=== PATIENT | female | born 1980 | race Caucasian/White ===

== ENCOUNTER 2017-05-18 15:28 | Emergency (ER) | payer OTHER ==
[~2017-05-18] VITALS: Ht 162.5 cm; Wt 83.9 kg
[~2017-05-18 15:28] MED LIST: 'PARAFON FORTE500 M1 PO; AUGMENTIN 875875 MG PO; BUPROPION HCL150 M1 PO; LOVASTATIN10 MG PO; NAPROSYN500 MG PO; PREDNISONE10 MG PO; SIMVASTATIN5 MG PO
[2017-05-18 15:33] VITALS: BP 148/88
[2017-05-18] MEDS ORDERED: MOBIC7.5 MG PO (15:34)
[2017-05-18] MEDS ORDERED: 'PARAFON FORTE500 M1 PO (15:46)
== END 2017-05-18 15:51 | disposition home or self-care (01) ==
LOC: ED 15:28
DX: M54.42 Lumbago with sciatica, left side (principal); M54.41 Lumbago with sciatica, right side; R03.0 Elevated blood-pressure reading, without diagnosis of hypertension; F17.200 Nicotine dependence, unspecified, uncomplicated

== ENCOUNTER 2018-02-17 08:39 | Emergency (ER) | payer OTHER ==
[~2018-02-17] VITALS: Ht 162.5 cm; Wt 79.4 kg
[~2018-02-17 08:39] MED LIST changes: +MOBIC7.5 MG PO
[2018-02-17 10:47] VITALS: BP 125/80
[2018-02-17] MEDS ORDERED: CLARITIN10 MG PO (10:55)
[2018-02-17] MEDS ORDERED: PREDNISONE10 MG PO (10:55)
[2018-02-17] MEDS ORDERED: FLONASE ALLERG9.9 ML NAS (10:55)
== END 2018-02-17 11:01 | disposition home or self-care (01) ==
LOC: ED 08:39
DX: R51 Headache (principal); R03.0 Elevated blood-pressure reading, without diagnosis of hypertension; F17.200 Nicotine dependence, unspecified, uncomplicated; Z98.890 Other specified postprocedural states; Z79.899 Other long term (current) drug therapy

== ENCOUNTER 2018-04-08 20:33 | Emergency (ER) | payer OTHER ==
[~2018-04-08] VITALS: Ht 160 cm; Wt 81.2 kg
[~2018-04-08 20:33] MED LIST changes: +CLARITIN10 MG PO; +FLONASE ALLERG9.9 ML NAS
[2018-04-08 20:36] VITALS: BP 121/75
[2018-04-08] MEDS ORDERED: Motrin,Rufen800 MG PO (20:45)
== END 2018-04-08 21:00 | disposition home or self-care (01) ==
LOC: ED 20:33
DX: G56.01 Carpal tunnel syndrome, right upper limb (principal); M77.8 Other enthesopathies, not elsewhere classified; F17.200 Nicotine dependence, unspecified, uncomplicated; Z79.899 Other long term (current) drug therapy

== ENCOUNTER 2018-05-16 02:50 | Emergency (ER) | payer OTHER ==
[~2018-05-16] VITALS: Ht 162.5 cm; Wt 81.6 kg
--- NOTE | ~2018-05-16 | EKG ---
[place], [place] ELECTROCARDIOGRAM REPORT NAME: KINJAL TOVAR UNIT #: [id number] ROOM: DOCTOR: EPIPHANY DRAFT REPORT BIRTHDATE: [birth year] [facility] Test Date: 2018-05-16 Test Time: 03:13:29 Pat Name: KINJAL TOVAR Department: ER Room: 13 Gender: F [employer]: : 1980 Requested By: ZONIA KONG Order Number: [id number] Reading MD: Sylvia Casarez MD Measurements Intervals [place] Rate: 87 P: 56 CT: 151 QRS: 35 QRSD: 83 T: 34 QT: 364 QTc: 438 Interpretive Statements Sinus rhythm Nonspecific T abnormalities, anterior leads Abnormal EKG. Electronically Signed On 05-16-2018 12:04:00 PDT by Sylvia Casarez MD CM:EKGRPT:ELECTROCARDIOGRAM REPORT [id number] ZONIA KONG MD EPIPHANY DRAFT REPORT ZONIA KONG MD
--- NOTE | ~2018-05-16 | EKG ---
[place], [place] ELECTROCARDIOGRAM REPORT NAME: KINJAL TOVAR UNIT #: [id number] ROOM: DOCTOR: EPIPHANY DRAFT REPORT BIRTHDATE: [birth year] [facility] Test Date: 2018-05-16 Test Time: 05:10:40 Pat Name: KINJAL TOVAR Department: ER Room: 13 Gender: F Medical Device: ZACHERY : 1980 Requested By: ZONIA KONG Order Number: [id number] Reading MD: Sylvia Casarez MD Measurements Intervals [place] Rate: 78 P: 62 [place]: 147 QRS: 46 QRSD: 81 T: 52 QT: 388 QTc: 442 Interpretive Statements Sinus rhythm Borderline T abnormalities, anterior leads Abnormal EKG. No significant change compared to prior EKG. Electronically Signed On 05-16-2018 12:04:39 PDT by Sylvia Casarez MD CM:EKGRPT:ELECTROCARDIOGRAM REPORT 0510 1204 ZONIA LIZARRAGA DRAFT REPORT ZONIA KONG MD
[~2018-05-16 02:50] MED LIST changes: +Motrin,Rufen800 MG PO
[2018-05-16] MEDS ORDERED: LIPITOR20 MG PO (02:54)
[2018-05-16] MEDS ORDERED: HYDROCHLOROTH12.5 M3 PO (02:55)
[2018-05-16] MEDS ORDERED: CELEXA20 MG PO (02:55)
[2018-05-16 03:15] LABS: BASO % 0.4 % (0.0-1.0); EOS # 0.2 10*3/uL (0.0-0.4); EOS % 2.1 % (1.0-4.0); HEMATOCRIT 44.2 % (37.0-47.0); HEMOGLOBIN 14.5 g/dl (12.0-16.0); LYMPH # 3.8 10*3/uL (1.3-4.4); LYMPH % 41.9 % (27.0-41.0); MEAN CELL VOLUME 95.3 fl (81.0-99.0); MEAN CORPUSCULAR HGB 31.3 pg (27.0-31.0); MEAN CORPUSCULAR HGB CONC 32.8 g/dl (33.0-37.0); MEAN PLATELET VOLUME 10.5 fl (9.6-12.3); MONO # 0.4 10*3/uL (0.1-1.0); NEUT # 4.6 10*3/uL (2.3-7.9); NEUT % 51.3 % (47.0-73.0); PLATELET COUNT AUTOMATED 277 10*3/uL (130-400); RED BLOOD COUNT 4.64 10*6/uL (4.10-5.10); RED CELL DISTRI WIDTH 13.2 % (0-14.5); WHITE BLOOD COUNT 9.1 10*3/uL (4.8-10.8)
[2018-05-16 03:26] LABS: ACT PARTIAL THROMBO TIME 26.3 SECONDS (20.8-31.5); INTERNATIONAL NORM RATIO 0.9 (2.0-3.5)
[2018-05-16 03:33] LABS: ALBUMIN 3.5 gm/dl (3.1-4.5); ALKALINE PHOSPHATASE 141 U/L (45-117); BUN 12 mg/dl (7-24); CHLORIDE 104 mmol/L (98-107); CREATININE 1.12 mg/dL (0.55-1.02); SGOT/AST 14 IU/L (3-35); SGPT/ALT 26 U/L (12-78); SODIUM 139 mmol/L (136-145); TOTAL PROTEIN 7.2 gm/dL (6.4-8.2)
[2018-05-16 03:34] LABS: TROPONIN I < 0.015 ng/ml (<0.045)
[2018-05-16 05:32] VITALS: BP 113/70
[2018-06-09] MEDS ORDERED: OMEPRAZOLE20 M3 PO (10:15)
[2018-06-09] MEDS ORDERED: DICLOFENAC SOD50 MG PO (10:16)
[2018-06-09] MEDS ORDERED: LOPID600 M1 PO (10:16)
== END 2018-05-16 05:48 | disposition home or self-care (01) ==
LOC: ED 02:50
PROVIDERS: Emergency Medicine Emergency Medical Services
DX: R07.89 Other chest pain (principal); R73.9 Hyperglycemia, unspecified; I10 Essential (primary) hypertension; E78.5 Hyperlipidemia, unspecified; F17.200 Nicotine dependence, unspecified, uncomplicated; Z79.899 Other long term (current) drug therapy

== ENCOUNTER → 2018-06-09 | Outpatient (CLI) | payer OTHER ==
[~2018-06-09] MED LIST changes: +CELEXA20 MG PO; +DICLOFENAC SOD50 MG PO; +HYDROCHLOROTH12.5 M3 PO; +LIPITOR20 MG PO; +LOPID600 M1 PO; +OMEPRAZOLE20 M3 PO
--- NOTE | ~2018-06-09 | ST ---
[place], [place] EXERCISE STRESS TEST REPORT NAME: [facility]AR [id number] UNIT #: [id number] ROOM: DOCTOR: JULI NAVARRO MD BIRTHDATE: [birth year] DOS: 06/09/2018 INDICATIONS: Precordial chest pain. PROCEDURE: The patient walked on a full Kamran protocol for 6 minutes and stopped for fatigue and dyspnea. She achieved a maximum heart rate of 158, which represented 86% of her maximum predicted heart rate at a workload of 7.0 mets. Her resting heart rate was 83. The resting blood pressure of 104/68 [place] to a peak of 148/62. The patient's resting EKG was normal. At peak exercise, she had slight J-point depression and two leads 2 and 3 that resolved immediately in recovery. There was no diagnostic ST change seen. The patient had no chest pain. Montano treadmill score was 6 indicating a low risk for myocardial events. IMPRESSION: 1. Somewhat limited exercise capacity for age without chest pain or diagnostic electrocardiographic changes. 2. Montano treadmill score 6 indicating low risk for cardiac events. 3. Normal exercise stress test. JULI NAVARRO MD CM:STRESS:EXERCISE STRESS TEST REPORT [id number] JULI NAVARRO MD
== END | disposition home or self-care (01) ==
LOC: CARD 02:01
DX: R07.89 Other chest pain (principal)

== ENCOUNTER → 2018-06-10 | Outpatient (CLI) | payer OTHER | END | disposition home or self-care (01) | LOC: CARD 15:00 | DX: R07.89 Other chest pain (principal) ==

== ENCOUNTER 2018-11-18 07:43 | Emergency (ER) | payer OTHER ==
[~2018-11-18] VITALS: Ht 160 cm; Wt 81.6 kg
[~2018-11-18 07:43] MED LIST changes: +CYCLOBENZAPRINE10 MG PO
[2018-11-18 07:45] VITALS: BP 135/83
[2018-11-18] MEDS ORDERED: ZITHROMAX250 MG PO (08:29)
== END 2018-11-18 08:55 | disposition home or self-care (01) ==
LOC: ED 07:43
DX: J20.9 Acute bronchitis, unspecified (principal); F17.200 Nicotine dependence, unspecified, uncomplicated; Z79.899 Other long term (current) drug therapy

== ENCOUNTER 2019-02-17 22:45 | Emergency (ER) | payer OTHER ==
[~2019-02-17] VITALS: Ht 162.5 cm; Wt 86.2 kg
[~2019-02-17 22:45] MED LIST changes: +ZITHROMAX250 MG PO
[2019-02-17 22:47] VITALS: BP 127/82
[2019-02-18] MEDS ORDERED: ANAPROX DS550 MG PO (00:02)
== END 2019-02-18 00:21 | disposition home or self-care (01) ==
LOC: ED 22:45
DX: M79.662 Pain in left lower leg (principal); Z79.899 Other long term (current) drug therapy; X58.XXXA Exposure to other specified factors, initial encounter; Y93.89 Activity, other specified; Y92.89 Other specified places as the place of occurrence of the external cause; Y99.8 Other external cause status

== ENCOUNTER → 2019-04-23 | Outpatient (CLI) | payer OTHER ==
[~2019-04-23] MED LIST changes: +ANAPROX DS550 MG PO
== END | disposition home or self-care (01) ==
LOC: RAD 10:45
DX: R00.0 Tachycardia, unspecified (principal); F32.9 Major depressive disorder, single episode, unspecified; R06.02 Shortness of breath

== ENCOUNTER 2019-06-29 22:40 | Emergency (ER) | payer OTHER ==
[~2019-06-29] VITALS: Ht 162.5 cm; Wt 81.6 kg
[2019-06-29 22:44] VITALS: BP 142/100
[2019-06-29 23:04] LABS: BASO # 0.1 10*3/uL (0.0-0.1); BASO % 0.4 % (0.0-1.0); EOS # 0.1 10*3/uL (0.0-0.4); EOS % 1.2 % (1.0-4.0); HEMATOCRIT 42.9 % (37.0-47.0); HEMOGLOBIN 14.4 g/dl (12.0-16.0); LYMPH # 4.2 10*3/uL (1.3-4.4); LYMPH % 36.8 % (27.0-41.0); MEAN CELL VOLUME 93.7 fl (81.0-99.0); MEAN CORPUSCULAR HGB 31.4 pg (27.0-31.0); MEAN CORPUSCULAR HGB CONC 33.6 g/dl (33.0-37.0); MEAN PLATELET VOLUME 9.9 fl (9.6-12.3); MONO # 0.4 10*3/uL (0.1-1.0); MONO % 3.8 % (3.0-9.0); NEUT # 6.6 10*3/uL (2.3-7.9); NEUT % 57.3 % (47.0-73.0); PLATELET COUNT AUTOMATED 279 10*3/uL (130-400); RED BLOOD COUNT 4.58 10*6/uL (4.10-5.10); RED CELL DISTRI WIDTH 13.4 % (0-14.5); WHITE BLOOD COUNT 11.5 10*3/uL (4.8-10.8)
[2019-06-29 23:19] LABS: ALBUMIN 3.7 gm/dl (3.1-4.5); ALKALINE PHOSPHATASE 173 U/L (45-117); BUN 11 mg/dl (7-24); CHLORIDE 104 mmol/L (98-107); CREATININE 1.01 mg/dL (0.55-1.02); POTASSIUM 3.7 mmol/L (3.5-5.1); SGOT/AST 23 IU/L (3-35); SGPT/ALT 34 U/L (12-78); SODIUM 137 mmol/L (136-145); TOTAL PROTEIN 7.3 gm/dL (6.4-8.2)
[2019-06-29 23:20] LABS: ACETAMINOPHEN (TYLENOL) < 5.0 ug/ml (10-30); ETHYL ALCOHOL < 3.0 mg/dl (<3)
[2019-06-29 23:23] LABS: BETA-HCG, QUANT < 1.0 mIU/mL (1-3)
[2019-06-30 00:33] LABS: URINE AMPHETAMINES < 1000 (1000ng/ml); URINE BARBITURATES < 200 (200ng/ml); URINE BENZODIAZEPINES < 200 (200ng/ml); URINE CANNABINOIDS (THC) < 50 (50ng/ml); URINE COCAINE < 300 (300ng/ml); URINE METHADONE < 300 (300ng/ml); URINE OPIATES < 300 (300ng/ml)
[2019-06-30 00:37] LABS: URINE PHENCYCLIDINE < 25 (25ng/ml)
== END 2019-06-30 00:55 | disposition home or self-care (01) ==
LOC: ED 22:40
PROVIDERS: Student in an Organized Health Care Education/Training Program
DX: L25.1 Unspecified contact dermatitis due to drugs in contact with skin (principal); R40.20 Unspecified coma; Z79.2 Long term (current) use of antibiotics

== ENCOUNTER 2019-11-01 19:39 | Emergency (ER) | payer OTHER ==
[~2019-11-01] VITALS: Ht 162.5 cm; Wt 89.8 kg
[2019-11-01 19:41] VITALS: BP 140/91
[2019-11-01] MEDS ORDERED: NAPROSYN500 MG PO (19:53)
[2019-11-01] MEDS ORDERED: ORPHENADRINE C100 M1 PO (19:53)
== END 2019-11-01 20:01 | disposition home or self-care (01) ==
LOC: ED 19:39
DX: M43.6 Torticollis (principal); R03.0 Elevated blood-pressure reading, without diagnosis of hypertension; K21.9 Gastro-esophageal reflux disease without esophagitis; I10 Essential (primary) hypertension; E78.5 Hyperlipidemia, unspecified; M19.90 Unspecified osteoarthritis, unspecified site; Z79.899 Other long term (current) drug therapy

== ENCOUNTER 2020-04-30 21:42 | Emergency (ER) | payer OTHER ==
[~2020-04-30] VITALS: Wt 86.2 kg
[~2020-04-30 21:42] MED LIST changes: +ORPHENADRINE C100 M1 PO
[2020-04-30 21:49] VITALS: BP 125/82
== END 2020-05-01 01:00 | disposition home or self-care (01) ==
LOC: ED 21:42
DX: M79.89 Other specified soft tissue disorders (principal); F32.9 Major depressive disorder, single episode, unspecified; I10 Essential (primary) hypertension; K21.9 Gastro-esophageal reflux disease without esophagitis; M19.90 Unspecified osteoarthritis, unspecified site; Z79.899 Other long term (current) drug therapy

== ENCOUNTER 2020-07-18 20:06 | Emergency (ER) | payer OTHER ==
[~2020-07-18] VITALS: Ht 162.5 cm; Wt 86.2 kg
[2020-07-18 20:13] VITALS: BP 158/98
[2020-07-18] MEDS ORDERED: AMOXICILLIN500 M3 PO (22:08)
[2020-07-18] MEDS ORDERED: IBU800 MG PO (22:08)
== END 2020-07-18 22:13 | disposition home or self-care (01) ==
LOC: ED 20:06
DX: I88.9 Nonspecific lymphadenitis, unspecified (principal); F32.9 Major depressive disorder, single episode, unspecified; K21.9 Gastro-esophageal reflux disease without esophagitis; I10 Essential (primary) hypertension; E78.5 Hyperlipidemia, unspecified; M19.90 Unspecified osteoarthritis, unspecified site; F17.200 Nicotine dependence, unspecified, uncomplicated; Z79.899 Other long term (current) drug therapy

== ENCOUNTER 2020-09-10 15:45 | Emergency (ER) | payer OTHER ==
[~2020-09-10] VITALS: Ht 162.5 cm; Wt 87.1 kg
[~2020-09-10 15:45] MED LIST changes: +AMOXICILLIN500 M3 PO; +IBU800 MG PO
[2020-09-10 16:10] LABS: BASO % 0.3 % (0.0-1.0); EOS # 0.2 10*3/uL (0.0-0.4); EOS % 1.4 % (1.0-4.0); LYMPH # 4.8 10*3/uL (1.3-4.4); LYMPH % 41.5 % (27.0-41.0); MEAN CELL VOLUME 93.3 fl (81.0-99.0); MEAN CORPUSCULAR HGB 30.9 pg (27.0-31.0); MEAN CORPUSCULAR HGB CONC 33.1 g/dl (33.0-37.0); MEAN PLATELET VOLUME 10.1 fl (9.6-12.3); MONO # 0.5 10*3/uL (0.1-1.0); MONO % 4.1 % (3.0-9.0); NEUT % 52.4 % (47.0-73.0); PLATELET COUNT AUTOMATED 272 10*3/uL (130-400); RED CELL DISTRI WIDTH 13.2 % (0-14.5); WHITE BLOOD COUNT 11.5 10*3/uL (4.8-10.8)
[2020-09-10 16:11] VITALS: BP 137/91
[2020-09-10 16:21] LABS: ACT PARTIAL THROMBO TIME 27.8 SECONDS (20.0-32.1); INTERNATIONAL NORM RATIO 0.9 (2.0-3.5)
[2020-09-10 16:27] LABS: ALBUMIN 3.5 gm/dl (3.1-4.5); ALKALINE PHOSPHATASE 142 U/L (45-117); BUN 11 mg/dl (7-24); CHLORIDE 107 mmol/L (98-107); CREATININE 0.98 mg/dL (0.55-1.02); POTASSIUM 3.7 mmol/L (3.5-5.1); SGOT/AST 26 IU/L (3-35); SGPT/ALT 28 U/L (12-78); SODIUM 142 mmol/L (136-145); TOTAL PROTEIN 7.4 gm/dL (6.4-8.2); TROPONIN I < 0.015 ng/ml (<0.045)
[2020-09-10] MEDS ORDERED: NAPROSYN500 MG PO (17:05)
== END 2020-09-10 16:43 | disposition home or self-care (01) ==
LOC: ED 15:45
PROVIDERS: Emergency Medicine
DX: R09.1 Pleurisy (principal); Z79.899 Other long term (current) drug therapy

== ENCOUNTER → 2021-01-17 | Outpatient (CLI) | payer OTHER ==
[~2021-01-17] MED LIST changes: +NAPROXEN250 MG PO; +ROBAXIN-750750 MG PO
== END | disposition home or self-care (01) ==
LOC: RAD 16:41
PROVIDERS: ATTEND Chiropractor Orthopedic
DX: M99.03 Segmental and somatic dysfunction of lumbar region (principal)

== ENCOUNTER 2021-02-09 19:36 | Emergency (ER) | payer OTHER ==
[~2021-02-09] VITALS: Ht 162.5 cm; Wt 83.0 kg
[~2021-02-09 19:36] MED LIST changes: -NAPROXEN250 MG PO; -ROBAXIN-750750 MG PO
[2021-02-09 19:43] VITALS: BP 130/90
[2021-02-09] MEDS ORDERED: ROBAXIN-750750 MG PO (20:16)
[2021-02-09] MEDS ORDERED: NAPROXEN250 MG PO (20:16)
== END 2021-02-09 20:29 | disposition home or self-care (01) ==
LOC: ED 19:36
DX: M54.41 Lumbago with sciatica, right side (principal); K21.9 Gastro-esophageal reflux disease without esophagitis; I10 Essential (primary) hypertension; E78.5 Hyperlipidemia, unspecified; F32.9 Major depressive disorder, single episode, unspecified; M19.90 Unspecified osteoarthritis, unspecified site; F17.200 Nicotine dependence, unspecified, uncomplicated; Z79.899 Other long term (current) drug therapy; Z98.890 Other specified postprocedural states

== ENCOUNTER 2021-05-24 20:14 | Emergency (ER) | payer OTHER ==
[~2021-05-24] VITALS: Ht 162.5 cm; Wt 75.3 kg
[~2021-05-24 20:14] MED LIST changes: +ASPIRIN CHILDRE81 MG PO; +ATORVASTATIN CA80 M1 PO; +LOPRESSOR25 MG PO; +NAPROXEN250 MG PO; +ROBAXIN-750750 MG PO
[2021-05-24 20:25] VITALS: BP 111/74
[2021-05-24 21:17] LABS: BASO % 0.3 % (0.0-1.0); EOS # 0.1 10*3/uL (0.0-0.4); HEMATOCRIT 39.9 % (37.0-47.0); LYMPH # 4.3 10*3/uL (1.3-4.4); LYMPH % 37.2 % (27.0-41.0); MEAN CELL VOLUME 92.4 fl (81.0-99.0); MEAN CORPUSCULAR HGB 30.1 pg (27.0-31.0); MEAN CORPUSCULAR HGB CONC 32.6 g/dl (33.0-37.0); MEAN PLATELET VOLUME 9.9 fl (9.6-12.3); MONO # 0.4 10*3/uL (0.1-1.0); MONO % 3.8 % (3.0-9.0); NEUT # 6.6 10*3/uL (2.3-7.9); NEUT % 57.4 % (47.0-73.0); PLATELET COUNT AUTOMATED 319 10*3/uL (130-400); RED BLOOD COUNT 4.32 10*6/uL (4.10-5.10); RED CELL DISTRI WIDTH 13.3 % (0-14.5); WHITE BLOOD COUNT 11.4 10*3/uL (4.8-10.8)
[2021-05-24 21:34] LABS: ALBUMIN 3.4 gm/dl (3.1-4.5); ALKALINE PHOSPHATASE 200 U/L (45-117); BUN 12 mg/dl (7-24); CHLORIDE 101 mmol/L (98-107); CREATININE 0.85 mg/dL (0.55-1.02); SGOT/AST 21 IU/L (3-35); SGPT/ALT 23 U/L (12-78); SODIUM 134 mmol/L (136-145); TOTAL PROTEIN 7.6 gm/dL (6.4-8.2); TROPONIN I < 0.015 ng/ml (<0.045)
[2021-05-24 21:39] LABS: BILIRUBIN Negative (Negative); BLOOD Negative (Negative); CLARITY Clear (Clear); COLOR Yellow (Yellow); GLUCOSE Negative (Negative); KETONE Negative (Negative); LEUKO ESTERASE Negative (Negative); NITRITE Negative (Negative); PH 6.5 (4.5-8.0)
== END 2021-05-24 22:33 | disposition home or self-care (01) ==
LOC: ED 20:14
PROVIDERS: Physician Assistant
DX: S39.012A Strain of muscle, fascia and tendon of lower back, initial encounter (principal); F17.200 Nicotine dependence, unspecified, uncomplicated; Z98.51 Tubal ligation status; Z79.899 Other long term (current) drug therapy; Z79.82 Long term (current) use of aspirin; X50.1XXA Overexertion from prolonged static or awkward postures, initial encounter; Y93.89 Activity, other specified; Y92.69 Other specified industrial and construction area as the place of occurrence of the external cause; Y99.9 Unspecified external cause status

== ENCOUNTER 2021-11-16 05:29 | Emergency (ER) | payer OTHER ==
[~2021-11-16] VITALS: Ht 162.5 cm; Wt 81.2 kg
[2021-11-16 05:54] VITALS: BP 103/64
== END 2021-11-16 08:34 | disposition home or self-care (01) ==
LOC: ED 05:29
DX: M54.50 Low back pain, unspecified (principal); K21.9 Gastro-esophageal reflux disease without esophagitis; E78.5 Hyperlipidemia, unspecified; F17.210 Nicotine dependence, cigarettes, uncomplicated; Z79.899 Other long term (current) drug therapy

== ENCOUNTER 2022-02-01 23:32 | Emergency (ER) | payer OTHER ==
[2022-02-02 00:11] VITALS: BP 110/62
== END 2022-02-02 00:15 | disposition home or self-care (01) ==
LOC: ED 23:32
DX: F45.8 Other somatoform disorders (principal); Z79.899 Other long term (current) drug therapy

== ENCOUNTER 2022-07-04 20:15 | Emergency (ER) | payer OTHER ==
[~2022-07-04] VITALS: Ht 162.5 cm; Wt 85.7 kg
[2022-07-04 20:17] VITALS: BP 116/75
[2022-07-04 20:49] LABS: BILIRUBIN Negative (Negative); BLOOD Negative (Negative); CLARITY Cloudy (Clear); COLOR Yellow (Yellow); GLUCOSE Negative (Negative); KETONE Trace (Negative); LEUKO ESTERASE 2+ (Negative); NITRITE Negative (Negative); PH 6.5 (4.5-8.0); SPECIFIC GRAVITY >= 1.030 (1.001-1.030)
[2022-07-04 21:10] LABS: BACTERIA 1+; EPITHELIAL CELLS TNTC; RBC 0-2 rbc/hpf (0-2)
[2022-07-04] MEDS ORDERED: PREDNISONE20 M1 PO (22:02)
[2022-07-04] MEDS ORDERED: CYCLOBENZAPRINE10 MG PO (22:02)
[2022-07-04] MEDS ORDERED: CIPRO500 MG PO (22:02)
== END 2022-07-04 22:13 | disposition home or self-care (01) ==
LOC: ED 20:15
PROVIDERS: Emergency Medicine
DX: N39.0 Urinary tract infection, site not specified (principal); M54.50 Low back pain, unspecified; G89.29 Other chronic pain; F17.200 Nicotine dependence, unspecified, uncomplicated; Z79.899 Other long term (current) drug therapy

== ENCOUNTER → 2022-08-07 | Outpatient (CLI) | payer OTHER ==
[~2022-08-07] MED LIST changes: +CIPRO500 MG PO; +PREDNISONE20 M1 PO
== END | disposition home or self-care (01) ==
LOC: RAD 16:05
PROVIDERS: ATTEND Nurse Practitioner Family
DX: M51.37 Other intervertebral disc degeneration, lumbosacral region (principal); M54.41 Lumbago with sciatica, right side; M43.17 Spondylolisthesis, lumbosacral region

== ENCOUNTER 2022-08-30 10:04 | Emergency (ER) | payer OTHER ==
[~2022-08-30] VITALS: Ht 162.5 cm; Wt 82.1 kg
[2022-08-30 10:10] VITALS: BP 154/86
[2022-08-30] MEDS ORDERED: IBU800 M1 PO (10:21)
[2022-08-30] MEDS ORDERED: CYCLOBENZAPRINE10 MG PO (12:58)
[2022-08-30] MEDS ORDERED: HYDROCODONE-AC1 EAC1 PO (12:58)
== END 2022-08-30 13:35 | disposition home or self-care (01) ==
LOC: ED 10:04
DX: M54.50 Low back pain, unspecified (principal); R53.1 Weakness; Z88.8 Allergy status to other drugs, medicaments and biological substances; Z79.899 Other long term (current) drug therapy; Z79.82 Long term (current) use of aspirin; Z98.51 Tubal ligation status

== ENCOUNTER → 2022-09-19 | Outpatient (CLI) | payer OTHER ==
[~2022-09-19] MED LIST changes: +HYDROCODONE-AC1 EAC1 PO; +IBU800 M1 PO
== END | disposition home or self-care (01) ==
LOC: MRI 09:00
PROVIDERS: ATTEND Orthopaedic Surgery
DX: M47.817 Spondylosis without myelopathy or radiculopathy, lumbosacral region (principal); M43.17 Spondylolisthesis, lumbosacral region; M51.27 Other intervertebral disc displacement, lumbosacral region; M48.07 Spinal stenosis, lumbosacral region

== ENCOUNTER 2023-01-23 18:01 | Emergency (ER) | payer OTHER ==
[~2023-01-23] VITALS: Wt 84.8 kg
[2023-01-23 18:39] VITALS: BP 122/87
== END 2023-01-23 21:02 | disposition left against medical advice (07) ==
LOC: ED 18:01
DX: B37.0 Candidal stomatitis (principal); Z53.21 Procedure and treatment not carried out due to patient leaving prior to being seen by health care provider

== ENCOUNTER 2023-06-06 23:20 | Emergency (ER) | payer OTHER ==
[~2023-06-06] VITALS: Ht 152.4 cm; Wt 67.6 kg
[2023-06-06 23:27] VITALS: BP 129/74
== END 2023-06-06 23:43 | disposition home or self-care (01) ==
LOC: ED 23:20
DX: Z48.01 Encounter for change or removal of surgical wound dressing (principal); Z91.048 Other nonmedicinal substance allergy status; Z88.8 Allergy status to other drugs, medicaments and biological substances; Z79.899 Other long term (current) drug therapy; Z79.82 Long term (current) use of aspirin; Z98.51 Tubal ligation status

== ENCOUNTER 2023-06-24 02:38 | Emergency (ER) | payer OTHER ==
[~2023-06-24] VITALS: Ht 162.5 cm; Wt 81.6 kg
[2023-06-24 02:45] VITALS: BP 115/69
[2023-06-24] MEDS ORDERED: METHOCARBAMOL750 M1 PO (02:54)
[2023-06-24] MEDS ORDERED: NAPROXEN250 MG PO (02:54)
== END 2023-06-24 03:05 | disposition home or self-care (01) ==
LOC: ED 02:38
DX: S39.012A Strain of muscle, fascia and tendon of lower back, initial encounter (principal); F32.A Depression, unspecified; K21.9 Gastro-esophageal reflux disease without esophagitis; I10 Essential (primary) hypertension; E78.5 Hyperlipidemia, unspecified; M19.90 Unspecified osteoarthritis, unspecified site; Z88.8 Allergy status to other drugs, medicaments and biological substances; Z98.51 Tubal ligation status; X58.XXXA Exposure to other specified factors, initial encounter; Y93.89 Activity, other specified; Y92.009 Unspecified place in unspecified non-institutional (private) residence as the place of occurrence of the external cause; Y99.8 Other external cause status

== ENCOUNTER 2024-10-07 19:42 | Emergency (ER) | payer OTHER ==
[~2024-10-07] VITALS: Ht 162.5 cm; Wt 86.2 kg
[~2024-10-07 19:42] MED LIST changes: +METHOCARBAMOL750 M1 PO
[2024-10-07 19:53] VITALS: BP 110/72
[2024-10-07] MEDS ORDERED: NAPROSYN500 MG PO (20:29)
[2024-10-07] MEDS ORDERED: NAPROXEN 250 MG TAB PO ONE (20:35)
== END 2024-10-07 20:36 | disposition home or self-care (01) ==
LOC: ED 19:42
DX: S80.01XA Contusion of right knee, initial encounter (principal); K21.9 Gastro-esophageal reflux disease without esophagitis; E78.5 Hyperlipidemia, unspecified; I25.2 Old myocardial infarction; Z91.048 Other nonmedicinal substance allergy status; Z88.8 Allergy status to other drugs, medicaments and biological substances; Z79.82 Long term (current) use of aspirin; Z79.899 Other long term (current) drug therapy; Z98.51 Tubal ligation status; W18.09XA Striking against other object with subsequent fall, initial encounter; Y93.89 Activity, other specified; Y92.89 Other specified places as the place of occurrence of the external cause; Y99.8 Other external cause status

== ENCOUNTER 2025-06-07 15:46 | Emergency (ER) | payer SELFPAY ==
[~2025-06-07] VITALS: Ht 162.5 cm; Wt 83.0 kg
[2025-06-07 16:00] VITALS: BP 137/87
[2025-06-07] MEDS ORDERED: Cyclobenzaprine Hydrochlorid 10 MG TAB PO ONE (18:00)
[2025-06-07] MEDS ORDERED: CYCLOBENZAPRINE10 MG PO (18:01)
== END 2025-06-07 18:08 | disposition home or self-care (01) ==
LOC: ED 15:46
DX: M62.838 Other muscle spasm (principal); Z88.1 Allergy status to other antibiotic agents; Z88.8 Allergy status to other drugs, medicaments and biological substances; Z98.51 Tubal ligation status; Z98.890 Other specified postprocedural states

== ENCOUNTER 2025-10-02 20:37 | Emergency (ER) | payer SELFPAY ==
[~2025-10-02] VITALS: Ht 162.5 cm; Wt 86.2 kg
[2025-10-02 20:53] VITALS: BP 141/94
[2025-10-02] MEDS ORDERED: SEPTDS PO (21:21)
[2025-10-02] MEDS ORDERED: Sulfamethoxazole/Trimethopri 1 TAB TAB PO ONE (21:25)
== END 2025-10-02 21:31 | disposition home or self-care (01) ==
LOC: ED 20:37
DX: L02.212 Cutaneous abscess of back [any part, except buttock and flank] (principal); Z98.890 Other specified postprocedural states; Z88.8 Allergy status to other drugs, medicaments and biological substances; Z79.899 Other long term (current) drug therapy; Z79.82 Long term (current) use of aspirin